=== PATIENT | female | born 1980 | race Caucasian/White ===

== ENCOUNTER 2016-08-22 17:06 | Emergency (ER) | payer SELFPAY ==
[~2016-08-22] VITALS: Ht 162.6 cm; Wt 57.0 kg
[2016-08-22 17:07] VITALS: BP 107/57; PULSE 89; RESP 16; TEMP 98.8; O2SAT 100
[2016-08-22 20:11] VITALS: BP 110/67; PULSE 75; RESP 12; TEMP 98; O2SAT 100
--- NOTE | 2016-08-22 20:24 | PD ---
HPI Chief Complaint: Related Problem Time Seen by Provider: 20:20 Travel History International Travel<30 days: No Contact w/Intl Traveler<30days: No Traveled to known affect area: No History of Present Illness HPI Patient complaining of vaginal bleeding and . Patient states she is approximately 5 weeks based on last menstrual period patient states she had a positive home test as well as went to a clinic where she had another positive urine test. Patient states she has an ultrasound scheduled but has not had it done yet.. PATIENT STATES THAT SHE BEGAN HAVING ABDOMINAL CRAMPING TODAY SIMILAR TO MENSTRUAL CRAMPS AND THEN HAVING VAGINAL BLEEDING. PATIENT STATES BLOOD IS DARKER THAN NORMAL MENSTRUAL CYCLE initially and then became light pink. PATIENT DENIES ANYTHING MAKING IT BETTER OR WORSE. DENIES ANY RADIATION OF THE PAIN. DENIES ANY FEVERS, NAUSEA, VOMITING, CHEST PAIN, OR SHORTNESS OF BREATH. PFSH Past Medical History Medical History: Denies Significant Hx ?: LMP: 07/13/16 Social History Tobacco Use: No Substance Use: No Allergies-Medications (Allergen,Severity, Reaction): Coded Allergies: No Known Allergies (Unverified , 08/22/16) Reported Meds & Prescriptions Reported Meds & Active Scripts Active No Active Prescriptions or Reported Medications Review of Systems Except as stated in HPI: all other systems reviewed are Neg Physical Exam Narrative GENERAL: Well-developed, well nourished, in no acute distress, and non-ill appearing. SKIN: Focused skin assessment warm and dry. HEAD: Atraumatic. Normocephalic. EYES: Pupils equal and round. EOMI. No scleral icterus. No injection or drainage. ENT: No nasal bleeding or discharge. Mucous membranes pink and moist. NECK: Trachea midline. Supple. No nuclear rigidity. CARDIOVASCULAR: Regular rate and rhythm. No murmur appreciated. RESPIRATORY: No accessory muscle use. No respiratory distress. Clear to auscultation. Breath sounds equal bilaterally. GASTROINTESTINAL: Abdomen soft, non-tender, nondistended. Hepatic and splenic margins not palpable. Normal bowel sounds 4. No pulsatile mass. MUSCULOSKELETAL: No obvious deformities. No clubbing. No cyanosis. No edema. Full range of motion. NEUROLOGICAL: Awake and alert. No obvious cranial nerve deficits. Motor grossly within normal limits. Normal speech. PSYCHIATRIC: Appropriate mood and affect; insight and judgment normal. Data Data Last Documented VS Vital Signs Date Time Temp Pulse Resp B/P Pulse Ox O2 Delivery O2 Flow Rate FiO2 08/22/16 20:11 98.0 75 12 110/67 100 Room Air Orders Beta Hcg (Quant/Titer) (08/22/16 20:18) Complete Blood Count With Diff (08/22/16 20:18) Comprehensive Metabolic Panel (08/22/16 20:18) Complete Rh (08/22/16 20:18) Urinalysis - C+S If Indicated (08/22/16 20:18) Iv Access Insert/Monitor (08/22/16 20:18) Ecg Monitoring (08/22/16 20:18) Cath For Specimen (08/22/16 20:18) Ed Urine Pregnancytest Poc (08/22/16 20:18) Us Pelvis (Ques Pr/Ect)W Trans (08/22/16 ) Labs Laboratory Tests Test 08/22/16 08/22/16 20:26 21:15 Urine Color YELLOW Urine Turbidity CLEAR Urine pH 6.5 Urine Specific [place] 1.023 Urine Protein TRACE mg/dL Urine Glucose (UA) NEG mg/dL Urine Ketones NEG mg/dL Urine Occult Blood MOD Urine Nitrite NEG Urine Bilirubin NEG Urine Urobilinogen LESS THAN 2.0 MG/DL Urine Leukocyte Esterase NEG Urine RBC 1 /hpf Urine WBC 2 /hpf Urine Squamous Epithelial 2 /hpf Cells Urine Calcium Oxalate Crystals FEW /hpf Urine Mucus FEW /lpf Microscopic Urinalysis Comment CULT NOT INDICATED White Blood Count 7.8 TH/MM3 Red Blood Count 4.36 MIL/MM3 Hemoglobin 13.9 GM/DL Hematocrit 39.8 % Mean Corpuscular Volume 91.2 FL Mean Corpuscular Hemoglobin 31.8 PG Mean Corpuscular Hemoglobin 34.8 % Concent Red Cell Distribution Width 12.8 % Platelet Count 283 TH/MM3 Mean Platelet Volume 7.4 FL Neutrophils (%) (Auto) 47.8 % Lymphocytes (%) (Auto) 43.7 % Monocytes (%) (Auto) 5.7 % Eosinophils (%) (Auto) 2.0 % Basophils (%) (Auto) 0.8 % Neutrophils # (Auto) 3.7 TH/MM3 Lymphocytes # (Auto) 3.4 TH/MM3 Monocytes # (Auto) 0.4 TH/MM3 Eosinophils # (Auto) 0.2 TH/MM3 Basophils # (Auto) 0.1 TH/MM3 CBC Comment DIFF FINAL Differential Comment Sodium Level 139 MEQ/L Potassium Level 3.9 MEQ/L Chloride Level 106 MEQ/L Carbon Dioxide Level 29.5 MEQ/L Anion Gap 4 MEQ/L Blood Urea Nitrogen 12 MG/DL Creatinine 0.72 MG/DL Estimat Glomerular Filtration 93 ML/MIN Rate Random Glucose 73 MG/DL Calcium Level 9.1 MG/DL Total Bilirubin 0.4 MG/DL Aspartate Amino Transf 31 U/L (AST/SGOT) Alanine Aminotransferase 56 U/L (ALT/SGPT) Alkaline Phosphatase 63 U/L Total Protein 7.3 GM/DL Albumin 3.8 GM/DL Human Chorionic Gonadotropin, 309 MIU/ML Quant Blood Type B POSITIVE Rho(D) Type POSITIVE MDM Medical Decision Making Medical Screen Exam Complete: Yes Emergency Medical Condition: Yes Interpretation(s) Ultrasound read by the radiologist shows: 1. No gestational sac is demonstrated. In a patient with a positive beta hCG, the differential considerations would be an early IUP not yet visualized, early ectopic not yet visualized versus spontaneous . Recommend serial beta hCGs and followup ultrasound. 2. The uterus is retroverted in position. 3. No evidence of free fluid. Differential Diagnosis Miscarriage, threatened miscarriage, menorrhagia, subchorionic hemorrhage, electrolyte abnormality, UTI, IUP, other Narrative Course Patient presented with vaginal bleeding and lower abdominal pain and the test was positive. Ultrasound was performed and there is no obvious evidence of a uterine . However the quantitative B-HcG was low and last menstrual cycle was recent and therefore eludes to an early not able to be seen by sonography. There is no evidence to suggest obvious ectopic or ruptured ectopic , nor cervicitis, PID or torsion at this time. There was no evidence to support colitis, diverticulitis, obstruction, abdominal or femoral herniation, volvulus, early appendicitis, or hernial incarceration or strangulation at this time. Patient is stable and no clinical evidence of anemia. There is no RH incompatibility. The patient therefore can be released at this time with acute follow up. Patient was warned on the possibility of an ectopic and to return IMMEDIATELY if the pain and/ or bleeding worsened, felt faint or passed out. The patient was instructed to follow up with OB within 2 days. She was given ectopic warnings and warnings to return if bleeding worsened, felt faint or passed out, fever, worsening pain, inability to tolerate fluids, or as needed. The patient agreed with plan and stated will follow up as instructed. Patient in no obvious distress upon re-evaluation. All pertinent laboratory/ Radiology result(s) discussed with patient. Any questions/concerns in reference to patient diagnosis/condition discussed and clarified prior to patient's discharge. Reinforced sheer importance of close follow up with patient 's OB or here in 2 days for recheck. Instructed patient to return to ED immediately, if symptoms return/worsen. Pt showed understanding of above instructions. Further instructions and recommendations were detailed in discharge paperwork. Pt ambulated without difficulty out of ED at discharge. Diagnosis Primary Impression: Threatened miscarriage in early Patient Instructions: General Instructions, Threatened Miscarriage (ED) Additional Instructions: Follow-up with your OB or return here in 48 hours for reevaluation. Return to the emergency department sooner if symptoms get worse, fevers, chest pain, shortness of breath, unable tolerate fluids, worsening pain, or for other concerns.. Scripts No Active Prescriptions or Reported Meds Disposition: 01 DISCHARGE HOME Condition: Stable Jenaro Kuo Aug 22, 2016 20:24
[2016-08-22 20:59] LABS: BLOOD, URINE MOD (NEG); CALCIUM OXALATE CRYSTALS,URINE FEW /hpf; COMMENT (UR) CULT NOT INDICATED; CULTURE IF INDICATED CULT NOT INDICATED; GLUCOSE,URINE NEG (NEG); KETONE, URINE NEG (NEG); MUCUS URINE FEW /lpf (OCC); NITRITE,URINE NEG (NEG); PH, URINE 6.5 (5.0-8.5); SQUAMOUS EPITHELIAL CELL URINE 2 /hpf (0-5); URINE COLOR YELLOW (YELLW/STRAW)
[2016-08-22 21:24] LABS: AUTOMATED NEUTROPHIL # 3.7 TH/MM3 (1.8-7.7); BASOPHIL # 0.1 TH/MM3 (0-0.2); BASOPHIL % 0.8 % (0.0-2.0); EOSINOPHIL # 0.2 TH/MM3 (0-0.4); HEMATOCRIT 39.8 % (35.0-46.0); HEMO FLAGS DIFF FINAL; LYMPH % 43.7 % (9.0-44.0); LYMPHOCYTE # 3.4 TH/MM3 (1.0-4.8); MEAN CELL VOLUME 91.2 FL (80.0-100.0); MEAN CORPUSCULAR HEMOGLOBIN 31.8 PG (27.0-34.0); MEAN CORPUSCULAR HGB CONC 34.8 % (32.0-36.0); MONO % 5.7 % (0.0-8.0); NEUT % 47.8 % (16.0-70.0); PLATELET COUNT 283 TH/MM3 (150-450); RED BLOOD COUNT 4.36 MIL/MM3 (4.00-5.30); RED CELL DISTRIBUTION WIDTH 12.8 % (11.6-17.2); WHITE BLOOD COUNT 7.8 TH/MM3 (4.0-11.0)
[2016-08-22 21:44] LABS: ANION GAP 4 MEQ/L (5-15); AST (GOT) 31 U/L (15-37); BICARBONATE 29.5 MEQ/L (21.0-32.0); BLOOD UREA NITROGEN 12 MG/DL (7-18); CHLORIDE 106 MEQ/L (98-107); GLOMERULAR FILTRATION RATE 93 ML/MIN (>89); POTASSIUM 3.9 MEQ/L (3.5-5.1); SODIUM (NA) 139 MEQ/L (136-145)
[2016-08-22 21:45] LABS: ALT (GPT) 56 U/L (10-53)
[2016-08-22 21:49] LABS: ALKALINE PHOSPHATASE 63 U/L (45-117); BETA HCG QUANT 309 MIU/ML (0-5); TOTAL BILIRUBIN ADULT 0.4 MG/DL (0.2-1.0)
--- NOTE | 2016-08-22 23:44 | RADRPT ---
EXAM DATE/TIME: 08/22/2016 22:23 [facility] COMPARISON: No previous studies available for comparison. INDICATIONS : and bleeding. LAB(S): Beta-hC MEDICAL HISTORY : Hepatitis C. SURGICAL HISTORY : Breast augmentation. ENCOUNTER: Initial ACUITY: 1 day PAIN SCORE: 4/10 LOCATION: Bilateral pelvis MEASUREMENTS: UTERUS: 6.9 x 5.8 x 3.9 cm ENDOMETRIAL STRIPE: 12 mm RIGHT OVARY: 4.0 x 2.8 x 1.7 cm LEFT OVARY: 2.7 x 1.9 x 1.8 cm FREE FLUID: No FINDINGS: UTERUS: The uterus appears to be retroverted in position. The endometrial cavity is empty. There is some mild thickening of the lining. A few tiny anechoic areas are seen in the endometrial lining. However, no evidence of a gestational sac is demonstrated. RIGHT OVARY: There is a small hyperechoic area measuring about 8 mm associated with the right ovary. There appear s to be a hypoechoic area measuring 2 cm suggestive of a collapsed cyst. No gestational sac is demons trated.. LEFT OVARY: Ovary contains no mass or significant cystic lesion. MISCELLANEOUS: No free fluid. CONCLUSION: 1. No gestational sac is demonstrated. In a patient with a positive beta hCG, the differential consid erations would be an early IUP not yet visualized, early ectopic not yet visualized versus spontaneous . Recommend serial beta hCGs and followup ultrasound. 2. The uterus is retroverted in position. 3. No evidence of free fluid. Estuardo Mcintyre MD on August 22, 2016 at 23:29 Board Certified Radiologist. This report was verified electronically.
== END 2016-08-23 00:02 | disposition home or self-care (01) ==
LOC: NEPD 17:06
DX: O20.0 Threatened abortion (principal); R10.9 Unspecified abdominal pain; Z3A.01 Less than 8 weeks gestation of pregnancy
CPT/HCPCS: 76700; 76817; 80053; 81001; 84702; 84703; 85025; 86901; 99284; P9612

== ENCOUNTER 2016-08-30 09:40 | Emergency (ER) | payer SELFPAY ==
[~2016-08-30] VITALS: Ht 162.6 cm; Wt 56.5 kg
[2016-08-30 09:42] VITALS: BP 127/60; PULSE 76; RESP 20; TEMP 98.2; O2SAT 100
== END 2016-08-30 10:34 | disposition left against medical advice (07) ==
LOC: NED 09:40
DX: R10.9 Unspecified abdominal pain (principal); Z53.21 Procedure and treatment not carried out due to patient leaving prior to being seen by health care provider
CPT/HCPCS: 99281